=== PATIENT | male | born 1990 | race African-American/Black ===

== ENCOUNTER 2017-12-27 17:21 | Emergency (ER) | payer SELFPAY ==
[~2017-12-27] VITALS: Ht 175.3 cm; Wt 86.3 kg
[2017-12-27] MEDS ORDERED: HYDROCODONE/ACETAMINOPHEN 5/325MG TABLET PO ONE (18:30)
[2017-12-27 19:40] VITALS: BP 135/74
== END 2017-12-27 19:45 | disposition home or self-care (01) ==
LOC: ER 17:21
DX: S10.83XA Contusion of other specified part of neck, initial encounter (principal); S30.0XXA Contusion of lower back and pelvis, initial encounter; V43.52XA Car driver injured in collision with other type car in traffic accident, initial encounter; Y93.89 Activity, other specified; Y92.89 Other specified places as the place of occurrence of the external cause; Y99.8 Other external cause status
CPT/HCPCS: 99283